=== PATIENT | female | born 1945 | race Two or more races ===

== ENCOUNTER 2021-10-12 22:06 | Inpatient (IN) | payer OTHER, MEDICAID ==
[~2021-10-12] VITALS: Ht 160 cm; Wt 47.2 kg
[2021-10-12 23:17] LABS: Basophils # (auto) 0.1 10 ^3/uL (0-0.2); Basophils % (auto) 0.6 % (0.0-2.0); Eosinophils # (auto) 0 10 ^3/uL (0-0.8); Eosinophils % (auto) 0.2 % (0.0-7.0); Hemoglobin 17.1 g/dL (12.2-16.2); Lymphocytes # (auto) 0.6 10 ^3/uL (0.4-5.4); Lymphocytes % (auto) 4.5 % (10.0-50.0); Mean Corpuscular Hgb Conc. 33.4 g/dL (32.0-36.0); Mean Corpuscular Volume 92.7 fL (80.0-100.0); Monocytes # (auto) 0.1 10 ^3/uL (0-1.3); Monocytes % (auto) 0.5 % (0.0-12.0); Neutrophils # (auto) 12.3 10 ^3/uL (1.6-8.6); Neutrophils % (auto) 94.2 % (37.0-80.0); Nucleated Red Blood Cells % 0.1 %; Red Cell Distribution Width 12.3 % (11.8-14.3); White Blood Cell 13.1 10^3/uL (4.4-10.8)
[2021-10-12 23:35] LABS: Chloride 96 mmol/L (98-107); INR 1.03 (0.9-1.15); Lactic Acid w/Reflex 3.9 mmol/L (0.4-2.0); Sodium 134 mmol/L (136-145)
[2021-10-12 23:57] LABS: Alanine Aminotransferase 29 U/L (13-56); Albumin 4.3 g/dL (3.4-5.0); Alkaline Phosphatase 103 U/L (45-117); Anion Gap 17 (5-15); Aspartate Aminotransferase 34 U/L (15-37); Bilirubin, Total 0.9 mg/dL (0.2-1.0); Blood Alcohol < 3.0 mg/dL (0-5); Blood Urea Nitrogen 21 mg/dL (7-18); Calcium 10.3 mg/dL (8.5-10.1); Carbon Dioxide 21 mmol/L (21-32); GFR African American 66 mL/min; GFR Non-African American 55 mL/min; Total Protein 8.6 g/dL (6.4-8.2)
[2021-10-13 00:09] LABS: Glucose 479 mg/dL (74-106)
[2021-10-13] MEDS ORDERED: LABETALOL HCL 5 MG/ML 4ML SYRINGE IV ONE (00:15)
[2021-10-13] MEDS ORDERED: InsuLIN R (HUMAN) 100 UNITS in SODIUM CHL 0.9% 99 ML IV SCH (01:15)
[2021-10-13] MEDS ORDERED: INSULIN LANTUS (GLARGINE) 1 /0.01ml (100units/ml) SC ONE ×2 (01:15→11:00)
[2021-10-13] MEDS ORDERED: DEXTROSE (50%) 50ML SYRG IV PRN ×2 (01:15→11:00)
[2021-10-13] MEDS ORDERED: ACETAMINOPHEN 650 MG RECT SUPP PR ONE (01:15)
[2021-10-13] MEDS: SODIUM CHLORIDE 0.9% 1,000 ML IV SCH ×2 (01:31→03:35)
[2021-10-13] MEDS ORDERED: InsuLIN REG 1unit/0.01ml Soln (100units/ml) ONE (01:35)
[2021-10-13] MEDS: ACCU-CHEK COMFORT CURVE STRIP VI SCH ×10 (01:49→23:15)
[2021-10-13] MEDS ORDERED: hydrALAZINE HCL 20 MG/ML VL ONE (02:30)
[2021-10-13] MEDS ORDERED: hydrALAZINE HCL 20 MG/ML VL IV ONE (02:30)
[2021-10-13 03:04] LABS: Basophils # (auto) 0.1 10 ^3/uL (0-0.2); Basophils % (auto) 0.8 % (0.0-2.0); Eosinophils # (auto) 0 10 ^3/uL (0-0.8); Eosinophils % (auto) 0.1 % (0.0-7.0); Hematocrit 49.7 % (36.0-46.0); Hemoglobin 16.7 g/dL (12.2-16.2); Lymphocytes # (auto) 0.5 10 ^3/uL (0.4-5.4); Lymphocytes % (auto) 3.5 % (10.0-50.0); Mean Corpuscular Hemoglobin 31.2 pg (28.0-32.0); Mean Corpuscular Hgb Conc. 33.6 g/dL (32.0-36.0); Monocytes # (auto) 0.3 10 ^3/uL (0-1.3); Monocytes % (auto) 1.9 % (0.0-12.0); Neutrophils # (auto) 13.6 10 ^3/uL (1.6-8.6); Neutrophils % (auto) 93.7 % (37.0-80.0); Nucleated Red Blood Cells % 0.2 %; Red Blood Cells 5.34 10^6/uL (4.0-5.20); Red Cell Distribution Width 12.6 % (11.8-14.3); White Blood Cell 14.5 10^3/uL (4.4-10.8)
[2021-10-13] MEDS: SOD CHL 0.9%/ KCL 20MEQ 1,000 ML IV SCH ×3 (03:32→10:42)
[2021-10-13 04:24] LABS: BUN/Creatinine Ratio 17.9; Calcium 9.3 mg/dL (8.5-10.1); Magnesium 2.4 mg/dL (1.6-2.6); Phosphorus 1.5 mg/dL (2.5-4.90); Potassium 4.1 mmol/L (3.5-5.1)
[2021-10-13] MEDS: POTASSIUM PHOSPHATE 22 MEQ in SODIUM CHL 0.9% 100 ML IV ONE ×2 (04:45→08:15)
[2021-10-13] MEDS ORDERED: MORPHINE SULFATE INJECTION 2 MG/ML SYRG IV PRN (04:45)
[2021-10-13] MEDS ORDERED: NITROGLYCERIN 0.4 MG SL TAB SL PRN (04:45)
[2021-10-13] MEDS ORDERED: ONDANSETRON HCL 4 MG/2 ML VIAL IV PRN (04:45)
[2021-10-13 07:23] LABS: Anion Gap 13 (5-15); BUN/Creatinine Ratio 19.2; Blood Urea Nitrogen 23 mg/dL (7-18); Calcium 9.1 mg/dL (8.5-10.1); Carbon Dioxide 24 mmol/L (21-32); Chloride 108 mmol/L (98-107); GFR African American 57 mL/min; GFR Non-African American 47 mL/min; Glucose 274 mg/dL (74-106); Potassium 3.2 mmol/L (3.5-5.1); Sodium 145 mmol/L (136-145)
[2021-10-13] MEDS ORDERED: cefTRIAXone 1GM/50ML D5W 50 ML IV SCH (09:00)
[2021-10-13] MEDS: PANTOPRAZOLE 40 MG/10 ML VIAL INJ IV SCH (10:21)
[2021-10-13] MEDS: SOD CHL 0.45% WITH 20MEQ KCL 1,000 ML IV SCH (12:17)
[2021-10-13] MEDS: InsuLIN REG 1unit/0.01ml Soln (100units/ml) SC SCH ×3 (12:26→23:18)
[2021-10-13 13:41] LABS: Calcium 9.4 mg/dL (8.5-10.1); Potassium 3.8 mmol/L (3.5-5.1)
[2021-10-13 13:46] LABS: BUN/Creatinine Ratio 26.4
[2021-10-13] MEDS ORDERED: ENOXAPARIN SOD 60 MG/0.6 ML SYRINGE SC ONE (14:30)
[2021-10-13 15:00] VITALS: BP 150/82
[2021-10-13 17:00] VITALS: BP 170/84
[2021-10-13 20:31] VITALS: BP 116/69
[2021-10-13 22:00] VITALS: BP 104/86
[2021-10-13] MEDS: ATORVASTATIN 20 MG TAB PO SCH (23:14)
[2021-10-13] MEDS: ENOXAPARIN SOD 60 MG/0.6 ML SYRINGE SC SCH (23:15)
[2021-10-14 05:30] VITALS: BP 160/92
[2021-10-14] MEDS: SOD CHL 0.45% WITH 20MEQ KCL 1,000 ML IV SCH ×2 (05:53→23:00)
[2021-10-14] MEDS: InsuLIN REG 1unit/0.01ml Soln (100units/ml) SC SCH ×3 (05:53→18:01)
[2021-10-14] MEDS: ACCU-CHEK COMFORT CURVE STRIP VI SCH ×3 (05:53→17:26)
[2021-10-14 06:29] LABS: Basophils # (auto) 0.1 10 ^3/uL (0-0.2); Basophils % (auto) 1.1 % (0.0-2.0); Eosinophils # (auto) 0 10 ^3/uL (0-0.8); Eosinophils % (auto) 0.3 % (0.0-7.0); Hematocrit 43.1 % (36.0-46.0); Hemoglobin 14.6 g/dL (12.2-16.2); Lymphocytes # (auto) 1.5 10 ^3/uL (0.4-5.4); Lymphocytes % (auto) 11.9 % (10.0-50.0); Mean Corpuscular Hemoglobin 31.4 pg (28.0-32.0); Mean Corpuscular Hgb Conc. 33.9 g/dL (32.0-36.0); Mean Corpuscular Volume 92.6 fL (80.0-100.0); Monocytes # (auto) 0.6 10 ^3/uL (0-1.3); Monocytes % (auto) 4.7 % (0.0-12.0); Neutrophils # (auto) 10.2 10 ^3/uL (1.6-8.6); Nucleated Red Blood Cells % 0.1 %; Red Blood Cells 4.65 10^6/uL (4.0-5.20); Red Cell Distribution Width 12.9 % (11.8-14.3); White Blood Cell 12.4 10^3/uL (4.4-10.8)
[2021-10-14 06:47] LABS: Potassium 4.2 mmol/L (3.5-5.1)
[2021-10-14 06:55] LABS: Albumin 3.2 g/dL (3.4-5.0); BUN/Creatinine Ratio 37.4; Bilirubin, Total 0.7 mg/dL (0.2-1.0); Calcium 9.2 mg/dL (8.5-10.1); Total Protein 6.4 g/dL (6.4-8.2)
[2021-10-14 09:00] VITALS: BP 181/90
[2021-10-14] MEDS: PANTOPRAZOLE 40 MG/10 ML VIAL INJ IV SCH (10:46)
[2021-10-14] MEDS: ASPirin 81 mg TAB PO SCH (10:47)
[2021-10-14] MEDS: ENOXAPARIN SOD 60 MG/0.6 ML SYRINGE SC SCH (10:48)
[2021-10-14] MEDS ORDERED: INSULIN LANTUS (GLARGINE) 1 /0.01ml (100units/ml) SC ONE (11:15)
[2021-10-14 11:36] LABS: Urine Bacteria NONE SEEN /hpf (None Seen); Urine Blood 3+ /uL (Negative); Urine Budding Yeast LOADED /hpf (None Seen); Urine Mucus FEW (None Seen); Urine Specific Gravity 1.024 (1.001-1.035); Urine WBC 158 /hpf (0 - 5)
[2021-10-14 12:00] VITALS: BP 136/91
[2021-10-14 13:00] VITALS: BP 138/91
[2021-10-14 14:20] LABS: Amphetamine Screen, Urine NEGATIVE (NEGATIVE); Barbiturate Scree,Urine NEGATIVE (NEGATIVE); Benzodiazephine Screen, Urine NEGATIVE (NEGATIVE); Cannabinoid Screen, Urine NEGATIVE (NEGATIVE); Cocaine Screen, Urine NEGATIVE (NEGATIVE); Opiate Scree,Urine NEGATIVE (NEGATIVE); Phencyclidine Screen, Urine NEGATIVE (NEGATIVE)
[2021-10-14 17:00] VITALS: BP 169/76
[2021-10-14] MEDS: hydrALAZINE HCL 20 MG/ML VL IV PRN (17:59)
[2021-10-14 22:00] VITALS: BP 119/61
[2021-10-15] MEDS: SOD CHL 0.45% WITH 20MEQ KCL 1,000 ML IV SCH (00:03)
[2021-10-15] MEDS: ATORVASTATIN 20 MG TAB PO SCH (00:03)
[2021-10-15] MEDS: METOPROLOL TARTRATE 25 MG TAB PO SCH ×2 (00:05→10:36)
[2021-10-15] MEDS: ACCU-CHEK COMFORT CURVE STRIP VI SCH ×4 (00:06→19:02)
[2021-10-15] MEDS: ENOXAPARIN SOD 60 MG/0.6 ML SYRINGE SC SCH ×2 (00:06→10:34)
[2021-10-15] MEDS: InsuLIN REG 1unit/0.01ml Soln (100units/ml) SC SCH ×4 (00:07→17:08)
[2021-10-15 05:00] VITALS: BP 162/68
[2021-10-15] MEDS: INSULIN LANTUS (GLARGINE) 1 /0.01ml (100units/ml) SC SCH (06:36)
[2021-10-15 09:00] VITALS: BP 157/70
[2021-10-15] MEDS: PANTOPRAZOLE 40 MG/10 ML VIAL INJ IV SCH (10:34)
[2021-10-15] MEDS: ASPirin 81 mg TAB PO SCH (10:35)
[2021-10-15] MEDS: LISINOPRIL 10 MG TAB PO SCH (10:35)
[2021-10-15] MEDS: cefTRIAXone 1GM/50ML D5W 50 ML IV SCH (10:37)
[2021-10-15 13:00] VITALS: BP 132/64
[2021-10-15 17:00] VITALS: BP 155/79
[2021-10-15 22:00] VITALS: BP 101/77
[2021-10-16 05:00] VITALS: BP 156/84
[2021-10-16] MEDS: ACCU-CHEK COMFORT CURVE STRIP VI SCH ×2 (06:07)
[2021-10-16] MEDS: InsuLIN REG 1unit/0.01ml Soln (100units/ml) SC SCH ×4 (06:17→18:00)
[2021-10-16] MEDS: INSULIN LANTUS (GLARGINE) 1 /0.01ml (100units/ml) SC SCH (06:17)
[2021-10-16] MEDS: cefTRIAXone 1GM/50ML D5W 50 ML IV SCH (08:56)
[2021-10-16] MEDS: ASPirin 81 mg TAB PO SCH (08:57)
[2021-10-16] MEDS: METOPROLOL TARTRATE 25 MG TAB PO SCH ×4 (08:58→23:04)
[2021-10-16] MEDS: LISINOPRIL 10 MG TAB PO SCH (08:59)
[2021-10-16] MEDS: ENOXAPARIN SOD 40 MG/0.4 ML SYRINGE SC SCH (08:59)
[2021-10-16 09:00] VITALS: BP 144/69
[2021-10-16] MEDS ORDERED: INSULIN LANTUS (GLARGINE) 1 /0.01ml (100units/ml) SC ONE (12:45)
[2021-10-16 20:00] VITALS: BP 132/70
[2021-10-16] MEDS: ATORVASTATIN 20 MG TAB PO SCH ×2 (23:05)
[2021-10-17] MEDS ORDERED: INSULIN LANTUS (GLARGINE) 1 /0.01ml (100units/ml) SC SCH (07:00)
[2021-10-17 08:00] VITALS: BP 132/70
[2021-10-17] MEDS: cefTRIAXone 1GM/50ML D5W 50 ML IV SCH (09:00)
[2021-10-17] MEDS: METOPROLOL TARTRATE 25 MG TAB PO SCH (09:00)
[2021-10-17] MEDS: LISINOPRIL 10 MG TAB PO SCH (10:00)
[2021-10-17] MEDS: ASPirin 81 mg TAB PO SCH (10:00)
[2021-10-17] MEDS: ENOXAPARIN SOD 40 MG/0.4 ML SYRINGE SC SCH (10:00)
[2021-10-17] MEDS: InsuLIN REG 1unit/0.01ml Soln (100units/ml) SC SCH ×3 (12:00→18:00)
[2021-10-17] MEDS ORDERED: glipiZIDE 5 MG TAB PO SCH (18:00)
[2021-10-17 22:00] VITALS: BP 156/89
[2021-10-17] MEDS: ATORVASTATIN 20 MG TAB PO SCH (22:22)
[2021-10-17] MEDS: hydrALAZINE HCL 20 MG/ML VL IV PRN (22:23)
[2021-10-18] MEDS: InsuLIN REG 1unit/0.01ml Soln (100units/ml) SC SCH ×4 (00:13→17:48)
[2021-10-18] MEDS: ACCU-CHEK COMFORT CURVE STRIP VI SCH ×4 (01:10→17:48)
[2021-10-18 05:00] VITALS: BP 130/79
[2021-10-18 06:09] LABS: Cholesterol 147 mg/dL (< 200); Folate (Folic Acid) 14.1 ng/mL (5.38-24); HDL Cholesterol 54 mg/dL (40-59); LDL Cholesterol 76 mg/dL (< 100); Triglycerides 84 mg/dL (< 150)
[2021-10-18] MEDS: INSULIN LANTUS (GLARGINE) 1 /0.01ml (100units/ml) SC SCH (06:20)
[2021-10-18 09:13] VITALS: BP 134/80
[2021-10-18] MEDS: cefTRIAXone 1GM/50ML D5W 50 ML IV SCH (09:40)
[2021-10-18] MEDS: ASPirin 81 mg TAB PO SCH (09:40)
[2021-10-18] MEDS: LISINOPRIL 10 MG TAB PO SCH (09:41)
[2021-10-18] MEDS: METOPROLOL TARTRATE 25 MG TAB PO SCH ×2 (09:41→21:30)
[2021-10-18] MEDS: ENOXAPARIN SOD 40 MG/0.4 ML SYRINGE SC SCH (09:42)
[2021-10-18 12:22] VITALS: BP 164/49
[2021-10-18] MEDS: hydrALAZINE HCL 20 MG/ML VL IV PRN (12:23)
[2021-10-18] MEDS ORDERED: OXYB5TAB61 PO (15:21)
[2021-10-18] MEDS ORDERED: ATOR40TA52 PO (15:21)
[2021-10-18] MEDS ORDERED: [UNRECOGNIZED DRUG - CODE] (15:21)
[2021-10-18] MEDS ORDERED: LISI40TA11 PO (15:21)
[2021-10-18] MEDS ORDERED: METF-916 PO (15:21)
[2021-10-18] MEDS ORDERED: ALCOPAD62 TOP (15:21)
[2021-10-18] MEDS ORDERED: INSUINJ37 SC (15:21)
[2021-10-18] MEDS ORDERED: GABA-339 PO (15:21)
[2021-10-18] MEDS ORDERED: GLUC-244 XX (15:21)
[2021-10-18] MEDS ORDERED: MET25T PO (15:21)
[2021-10-18 17:02] VITALS: BP 93/51
[2021-10-18] MEDS: ATORVASTATIN 20 MG TAB PO SCH (21:29)
[2021-10-18 22:00] VITALS: BP 158/65
[2021-10-18] MEDS ORDERED: HYDROcodone-ACET 5/325MG TAB PO PRN (22:30)
[2021-10-19] MEDS: InsuLIN REG 1unit/0.01ml Soln (100units/ml) SC SCH ×4 (00:36→17:32)
[2021-10-19] MEDS: ACCU-CHEK COMFORT CURVE STRIP VI SCH ×4 (00:38→17:35)
[2021-10-19 05:00] VITALS: BP 165/96
[2021-10-19] MEDS: INSULIN LANTUS (GLARGINE) 1 /0.01ml (100units/ml) SC SCH (06:20)
[2021-10-19] MEDS: hydrALAZINE HCL 20 MG/ML VL IV PRN (06:29)
[2021-10-19 06:38] VITALS: BP 136/66
[2021-10-19 07:23] LABS: Basophils # (auto) 0 10 ^3/uL (0-0.2); Basophils % (auto) 0.7 % (0.0-2.0); Eosinophils # (auto) 0.2 10 ^3/uL (0-0.8); Eosinophils % (auto) 2.7 % (0.0-7.0); Hematocrit 37.4 % (36.0-46.0); Hemoglobin 12.7 g/dL (12.2-16.2); Lymphocytes # (auto) 1.8 10 ^3/uL (0.4-5.4); Lymphocytes % (auto) 31.2 % (10.0-50.0); Mean Corpuscular Hemoglobin 30.6 pg (28.0-32.0); Mean Corpuscular Volume 90.1 fL (80.0-100.0); Monocytes # (auto) 0.4 10 ^3/uL (0-1.3); Monocytes % (auto) 6.8 % (0.0-12.0); Neutrophils # (auto) 3.3 10 ^3/uL (1.6-8.6); Neutrophils % (auto) 58.6 % (37.0-80.0); Nucleated Red Blood Cells % 0.1 %; Red Blood Cells 4.16 10^6/uL (4.0-5.20); White Blood Cell 5.6 10^3/uL (4.4-10.8)
[2021-10-19 07:44] LABS: BUN/Creatinine Ratio 45.9; Calcium 8.8 mg/dL (8.5-10.1); Potassium 3.7 mmol/L (3.5-5.1)
[2021-10-19 09:00] VITALS: BP_SYST 107; BP_SYST 121; BP_DIAS 69
[2021-10-19] MEDS ORDERED: diphenhdrAMINE HCL 50 MG/1 ML VL IV ONE (10:15)
[2021-10-19] MEDS ORDERED: fentaNYL CITRATE 100 MCG/2 ML VL IV ONE (10:15)
[2021-10-19] MEDS ORDERED: MIDAZOLAM HCL 5 MG/ML-1ML VIAL IM ONE (10:15)
[2021-10-19] MEDS ORDERED: LIDOCAINE VISCOUS 2% 15ML UD MT ONE (10:15)
[2021-10-19] MEDS ORDERED: MIDAZOLAM HCL 2MG/2ML 2ml VIAL (1mg/ml) ONE (11:11)
[2021-10-19 13:00] VITALS: BP 116/65
[2021-10-19] MEDS: ASPirin 81 mg TAB PO SCH (14:28)
[2021-10-19] MEDS: cefTRIAXone 1GM/50ML D5W 50 ML IV SCH (14:28)
[2021-10-19] MEDS: ENOXAPARIN SOD 40 MG/0.4 ML SYRINGE SC SCH (14:29)
[2021-10-19] MEDS: METOPROLOL TARTRATE 25 MG TAB PO SCH ×2 (14:29→21:40)
[2021-10-19] MEDS: LISINOPRIL 10 MG TAB PO SCH (14:29)
[2021-10-19] MEDS ORDERED: INSUINJ37 SC ×2 (16:51→16:53)
[2021-10-19 17:00] VITALS: BP 138/69
[2021-10-19] MEDS: ATORVASTATIN 20 MG TAB PO SCH (21:39)
[2021-10-19 22:00] VITALS: BP 126/62
[2021-10-20] MEDS: ACCU-CHEK COMFORT CURVE STRIP VI SCH ×4 (00:23→18:20)
[2021-10-20] MEDS: InsuLIN REG 1unit/0.01ml Soln (100units/ml) SC SCH ×4 (00:25→18:20)
[2021-10-20 05:11] VITALS: BP 149/67
[2021-10-20] MEDS: INSULIN LANTUS (GLARGINE) 1 /0.01ml (100units/ml) SC SCH (05:50)
[2021-10-20 09:00] VITALS: BP 137/77
[2021-10-20] MEDS: ASPirin 81 mg TAB PO SCH (09:59)
[2021-10-20] MEDS: cefTRIAXone 1GM/50ML D5W 50 ML IV SCH (09:59)
[2021-10-20] MEDS: METOPROLOL TARTRATE 25 MG TAB PO SCH ×2 (10:00→22:18)
[2021-10-20] MEDS: LISINOPRIL 10 MG TAB PO SCH (10:00)
[2021-10-20] MEDS: ENOXAPARIN SOD 40 MG/0.4 ML SYRINGE SC SCH (10:01)
[2021-10-20 17:10] VITALS: BP 147/76
[2021-10-20 20:00] VITALS: BP 150/70
[2021-10-20] MEDS: ATORVASTATIN 20 MG TAB PO SCH (22:12)
[2021-10-21] MEDS: ACCU-CHEK COMFORT CURVE STRIP VI SCH ×4 (03:02→17:08)
[2021-10-21 05:00] VITALS: BP 150/70
[2021-10-21] MEDS: InsuLIN REG 1unit/0.01ml Soln (100units/ml) SC SCH ×4 (06:00→17:08)
[2021-10-21 09:00] VITALS: BP 163/74
[2021-10-21] MEDS ORDERED: LISINOPRIL 10 MG TAB PO SCH (10:00)
[2021-10-21] MEDS: ENOXAPARIN SOD 40 MG/0.4 ML SYRINGE SC SCH (10:35)
[2021-10-21] MEDS: ASPirin 81 mg TAB PO SCH (10:35)
[2021-10-21] MEDS: METOPROLOL TARTRATE 25 MG TAB PO SCH (10:40)
[2021-10-21] MEDS: INSULIN LANTUS (GLARGINE) 1 /0.01ml (100units/ml) SC SCH (10:45)
[2021-10-21 13:00] VITALS: BP 167/77
[2021-10-21 17:00] VITALS: BP 137/82
== END 2021-10-21 17:20 | DRG 637 ==
LOC: ER 22:14 → TELE 10-13 04:42 → TELE-CENTR 10-13 13:08 → CENTRAL 10-16 09:48
PROVIDERS: ADMIT Nurse Practitioner; ATTEND Internal Medicine
PROC: B24BZZ4 Ultrasonography of Heart with Aorta, Transesophageal (ICD-10-PCS; 2021-10-19)
PROC: 0GBH3ZX Excision of Right Thyroid Gland Lobe, Percutaneous Approach, Diagnostic (ICD-10-PCS; principal; 2021-10-20)
DX: E11.10 Type 2 diabetes mellitus with ketoacidosis without coma (principal); G93.41 Metabolic encephalopathy; N17.0 Acute kidney failure with tubular necrosis; I21.4 Non-ST elevation (NSTEMI) myocardial infarction; G93.1 Anoxic brain damage, not elsewhere classified; G91.2 (Idiopathic) normal pressure hydrocephalus; E03.9 Hypothyroidism, unspecified; E86.0 Dehydration; E87.6 Hypokalemia; H57.02 Anisocoria; I10 Essential (primary) hypertension; E04.2 Nontoxic multinodular goiter; E78.5 Hyperlipidemia, unspecified; Z20.822 Contact with and (suspected) exposure to COVID-19; M19.90 Unspecified osteoarthritis, unspecified site; I65.22 Occlusion and stenosis of left carotid artery; J45.909 Unspecified asthma, uncomplicated; Z72.0 Tobacco use; Z79.4 Long term (current) use of insulin; Z79.899 Other long term (current) drug therapy; Z86.73 Personal history of transient ischemic attack (TIA), and cerebral infarction without residual deficits
CPT/HCPCS: 36415; 36600; 70450; 70551; 71045; 71250; 72125; 73502; 74176; 76536; 76856; 76942; 80048; 80053; 80061; 80307; 80320; 81001; 82010; 82607; 82746; 82805; 82962; 83036; 83605; 83735; 83880; 83930; 84100; 84443; 84484; 85025; 85379; 85610; 85730; 87040; 87086; 87088; 87426; 88172; 93005; 93306; 93312; 93886; 95819; 96365; 96366; 96368; 96372; 96375; 97110; 97116; 97163; 97530; 99152; C9113; G0378; J0696; J1815; J2250; J2405

== ENCOUNTER 2021-12-17 18:41 | Inpatient (IN) | payer OTHER, MEDICAID ==
[~2021-12-17] VITALS: Ht 154.9 cm; Wt 45.7 kg
[~2021-12-17 18:41] MED LIST: ALCOPAD62 TOP; ATOR40TA52 PO; GABA-339 PO; GLUC-244 XX; INSUINJ37 SC; MET25T PO; METF-916 PO; OXYB5TAB61 PO; [UNRECOGNIZED DRUG - CODE]
[2021-12-17 19:49] LABS: Basophils # (auto) 0.1 10 ^3/uL (0-0.2); Basophils % (auto) 0.8 % (0.0-2.0); Eosinophils # (auto) 0 10 ^3/uL (0-0.8); Eosinophils % (auto) 0.6 % (0.0-7.0); Hematocrit 39.5 % (36.0-46.0); Hemoglobin 13.8 g/dL (12.2-16.2); Lymphocytes # (auto) 1.5 10 ^3/uL (0.4-5.4); Lymphocytes % (auto) 18.8 % (10.0-50.0); Mean Corpuscular Hemoglobin 31.3 pg (28.0-32.0); Mean Corpuscular Hgb Conc. 34.8 g/dL (32.0-36.0); Monocytes # (auto) 0.4 10 ^3/uL (0-1.3); Monocytes % (auto) 4.9 % (0.0-12.0); Neutrophils # (auto) 5.9 10 ^3/uL (1.6-8.6); Neutrophils % (auto) 74.9 % (37.0-80.0); Red Blood Cells 4.39 10^6/uL (4.0-5.20); Red Cell Distribution Width 12.7 % (11.8-14.3); White Blood Cell 7.8 10^3/uL (4.4-10.8)
[2021-12-17 19:58] LABS: Urine Bacteria FEW /hpf (None Seen); Urine Blood Negative /uL (Negative); Urine Specific Gravity 1.037 (1.001-1.035); Urine WBC 1 /hpf (0 - 5)
[2021-12-17 20:07] LABS: Albumin 3.5 g/dL (3.4-5.0); Calcium 9.1 mg/dL (8.5-10.1); Potassium 3.5 mmol/L (3.5-5.1)
[2021-12-17 20:10] LABS: Bilirubin, Total 0.6 mg/dL (0.2-1.0); Total Protein 6.6 g/dL (6.4-8.2)
[2021-12-17] MEDS ORDERED: LACTATED RINGER'S 2,000 ML IV ONE (20:30)
[2021-12-17] MEDS ORDERED: ACETAMINOPHEN 500 MG TAB PO PRN (23:45)
[2021-12-17] MEDS ORDERED: DEXTROSE (50%) 50ML SYRG IV PRN (23:45)
[2021-12-17] MEDS ORDERED: MORPHINE SULFATE INJECTION 2 MG/ML SYRG IV PRN ×2 (23:45)
[2021-12-17] MEDS ORDERED: NITROGLYCERIN 0.4 MG SL TAB SL PRN (23:45)
[2021-12-17] MEDS ORDERED: ALBUTEROL SULF 2.5 MG/0.5ML(0.5%) NEB SOLN NEB PRN (23:45)
[2021-12-17] MEDS ORDERED: IPRATROPIUM BROM 0.5 MG/2.5ML INH SOL NEB PRN (23:45)
[2021-12-17] MEDS ORDERED: ONDANSETRON HCL 4 MG/2 ML VIAL IV PRN (23:45)
[2021-12-18] VITALS (8 sets, daily range): BP systolic 131–159; BP diastolic 67–110
[2021-12-18] MEDS: ACCU-CHEK COMFORT CURVE STRIP VI SCH ×6 (00:18→20:00)
[2021-12-18] MEDS: SOD CHL 0.45% 1,000 ML IV SCH ×3 (00:23→13:30)
[2021-12-18] MEDS: InsuLIN REG 1unit/0.01ml Soln (100units/ml) SC SCH ×6 (00:24→20:42)
[2021-12-18] MEDS: HYDROcodone-ACET 5/325MG TAB PO PRN ×2 (05:18→12:20)
[2021-12-18 06:13] LABS: Basophils # (auto) 0.1 10 ^3/uL (0-0.2); Basophils % (auto) 1.1 % (0.0-2.0); Eosinophils # (auto) 0.1 10 ^3/uL (0-0.8); Eosinophils % (auto) 0.9 % (0.0-7.0); Hematocrit 37.3 % (36.0-46.0); Hemoglobin 13.5 g/dL (12.2-16.2); Lymphocytes % (auto) 24.1 % (10.0-50.0); Mean Corpuscular Hemoglobin 31.6 pg (28.0-32.0); Mean Corpuscular Hgb Conc. 36.1 g/dL (32.0-36.0); Mean Corpuscular Volume 87.5 fL (80.0-100.0); Monocytes # (auto) 0.3 10 ^3/uL (0-1.3); Monocytes % (auto) 3.9 % (0.0-12.0); Neutrophils # (auto) 5.8 10 ^3/uL (1.6-8.6); Nucleated Red Blood Cells % 0.1 %; Red Blood Cells 4.26 10^6/uL (4.0-5.20); Red Cell Distribution Width 12.8 % (11.8-14.3); White Blood Cell 8.4 10^3/uL (4.4-10.8)
[2021-12-18] MEDS: PANTOPRAZOLE 40 MG TAB PO SCH (10:53)
[2021-12-18 14:10] LABS: Amylase 36 U/L (25-115); Lipase 131 U/L (73-393)
[2021-12-18] MEDS: METOPROLOL TARTRATE 25 MG TAB PO SCH (18:23)
[2021-12-18] MEDS: GABAPENTIN 300 MG CAP PO SCH (21:39)
[2021-12-18] MEDS: ATORVASTATIN 20 MG TAB PO SCH (21:39)
[2021-12-18] MEDS: INSULIN LANTUS (GLARGINE) 1 /0.01ml (100units/ml) SC SCH (21:42)
[2021-12-19] MEDS: ACCU-CHEK COMFORT CURVE STRIP VI SCH ×5 (00:27→18:19)
[2021-12-19] MEDS: InsuLIN REG 1unit/0.01ml Soln (100units/ml) SC SCH ×5 (00:35→18:21)
[2021-12-19] MEDS: SOD CHL 0.45% 1,000 ML IV SCH ×4 (00:51→23:50)
[2021-12-19 05:00] VITALS: BP 142/86
[2021-12-19] MEDS: GABAPENTIN 300 MG CAP PO SCH ×2 (08:52→22:10)
[2021-12-19] MEDS: OXYBUTYNIN CHL 5 MG TAB PO SCH (08:52)
[2021-12-19] MEDS: METOPROLOL TARTRATE 25 MG TAB PO SCH ×2 (08:52→17:44)
[2021-12-19] MEDS: PANTOPRAZOLE 40 MG TAB PO SCH (08:52)
[2021-12-19 09:00] VITALS: BP 141/72
[2021-12-19] MEDS ORDERED: DEXTROSE (50%) 50ML SYRG IV PRN (12:00)
[2021-12-19 13:00] VITALS: BP 128/68
[2021-12-19 17:00] VITALS: BP 151/84
[2021-12-19 18:01] LABS: INR 1.04 (0.9-1.15)
[2021-12-19 22:00] VITALS: BP 157/86
[2021-12-19] MEDS: ATORVASTATIN 20 MG TAB PO SCH (22:10)
[2021-12-19] MEDS: DOCUSATE SOD 100 MG CAP PO SCH (22:10)
[2021-12-19] MEDS: INSULIN LANTUS (GLARGINE) 1 /0.01ml (100units/ml) SC SCH (22:11)
[2021-12-20] MEDS: ACCU-CHEK COMFORT CURVE STRIP VI SCH ×5 (00:53→23:29)
[2021-12-20] MEDS: InsuLIN REG 1unit/0.01ml Soln (100units/ml) SC SCH ×5 (00:58→23:29)
[2021-12-20 05:00] VITALS: BP 135/75
[2021-12-20 06:28] LABS: Basophils # (auto) 0 10 ^3/uL (0-0.2); Eosinophils # (auto) 0.1 10 ^3/uL (0-0.8); Monocytes # (auto) 0.2 10 ^3/uL (0-1.3); Monocytes % (auto) 4.3 % (0.0-12.0)
[2021-12-20 06:30] LABS: Basophils % (auto) 0.8 % (0.0-2.0); Eosinophils % (auto) 1.4 % (0.0-7.0); Hemoglobin 13.8 g/dL (12.2-16.2); Lymphocytes # (auto) 2.1 10 ^3/uL (0.4-5.4); Lymphocytes % (auto) 36.3 % (10.0-50.0); Mean Corpuscular Hemoglobin 31.7 pg (28.0-32.0); Mean Corpuscular Hgb Conc. 36.2 g/dL (32.0-36.0); Mean Corpuscular Volume 87.5 fL (80.0-100.0); Neutrophils # (auto) 3.3 10 ^3/uL (1.6-8.6); Neutrophils % (auto) 57.2 % (37.0-80.0); Red Blood Cells 4.34 10^6/uL (4.0-5.20); Red Cell Distribution Width 12.9 % (11.8-14.3); White Blood Cell 5.8 10^3/uL (4.4-10.8)
[2021-12-20 07:08] LABS: BUN/Creatinine Ratio 18.3; Calcium 8.7 mg/dL (8.5-10.1)
[2021-12-20 07:11] LABS: Potassium 2.6 mmol/L (3.5-5.1)
[2021-12-20] MEDS: METOPROLOL TARTRATE 25 MG TAB PO SCH ×2 (08:00→18:16)
[2021-12-20] MEDS ORDERED: LIDOCAINE VISCOUS 2% 15ML UD ONE (08:41)
[2021-12-20] MEDS ORDERED: MIDAZOLAM HCL 5 MG/ML-1ML VIAL ONE (08:41)
[2021-12-20] MEDS ORDERED: diphenhdrAMINE HCL 50 MG/1 ML VL ONE (08:42)
[2021-12-20] MEDS ORDERED: fentaNYL CITRATE 100 MCG/2 ML VL ONE (08:42)
[2021-12-20 09:00] VITALS: BP 157/81
[2021-12-20] MEDS: OXYBUTYNIN CHL 5 MG TAB PO SCH (09:32)
[2021-12-20] MEDS: GABAPENTIN 300 MG CAP PO SCH ×2 (09:32→21:21)
[2021-12-20] MEDS: PANTOPRAZOLE 40 MG TAB PO SCH (09:32)
[2021-12-20] MEDS: DOCUSATE SOD 100 MG CAP PO SCH ×2 (09:32→21:21)
[2021-12-20] MEDS: POTASSIUM CHL 20MEQ/100ML 100 ML IV SCH ×2 (10:11→12:02)
[2021-12-20] MEDS ORDERED: hydrALAZINE HCL 20 MG/ML VL IV PRN (11:45)
[2021-12-20 13:00] VITALS: BP 147/91
[2021-12-20] MEDS: SOD CHL 0.45% 1,000 ML IV SCH ×2 (13:10→16:12)
[2021-12-20] MEDS ORDERED: POTASSIUM CHL 20MEQ/100ML 100 ML IV ONE (14:15)
[2021-12-20 15:45] LABS: Urine Bacteria FEW /hpf (None Seen); Urine Blood Negative /uL (Negative); Urine Specific Gravity 1.008 (1.001-1.035); Urine WBC 153 /hpf (0 - 5)
[2021-12-20 16:48] VITALS: BP 146/84
[2021-12-20] MEDS: ATORVASTATIN 20 MG TAB PO SCH (21:21)
[2021-12-20] MEDS: INSULIN LANTUS (GLARGINE) 1 /0.01ml (100units/ml) SC SCH (21:29)
[2021-12-20 22:00] VITALS: BP 156/70
[2021-12-21] MEDS ORDERED: diphenhdrAMINE HCL 25 MG CAP PO ONE (01:00)
[2021-12-21 04:57] VITALS: BP 117/65
[2021-12-21] MEDS: ACCU-CHEK COMFORT CURVE STRIP VI SCH ×3 (05:33→18:02)
[2021-12-21] MEDS: InsuLIN REG 1unit/0.01ml Soln (100units/ml) SC SCH ×3 (05:33→18:00)
[2021-12-21 07:16] LABS: Potassium 3.3 mmol/L (3.5-5.1)
[2021-12-21 07:22] LABS: BUN/Creatinine Ratio 22.4; Calcium 8.5 mg/dL (8.5-10.1); Magnesium 1.6 mg/dL (1.6-2.6)
[2021-12-21] MEDS: METOPROLOL TARTRATE 25 MG TAB PO SCH ×2 (08:00→18:01)
[2021-12-21] MEDS: PANTOPRAZOLE 40 MG TAB PO SCH (08:06)
[2021-12-21] MEDS: OXYBUTYNIN CHL 5 MG TAB PO SCH (08:06)
[2021-12-21] MEDS: GABAPENTIN 300 MG CAP PO SCH (08:06)
[2021-12-21] MEDS: DOCUSATE SOD 100 MG CAP PO SCH (08:06)
[2021-12-21 08:59] VITALS: BP 147/77
[2021-12-21] MEDS ORDERED: SODIUM CHLORIDE LOCK 10 ML ONE (09:14)
[2021-12-21] MEDS ORDERED: LIDOCAINE VISCOUS 2% 15ML UD ONE (09:14)
[2021-12-21] MEDS ORDERED: MIDAZOLAM HCL 5 MG/ML-1ML VIAL ONE (09:15)
[2021-12-21] MEDS ORDERED: diphenhdrAMINE HCL 50 MG/1 ML VL ONE (09:16)
[2021-12-21] MEDS ORDERED: fentaNYL CITRATE 100 MCG/2 ML VL ONE (09:16)
[2021-12-21] MEDS ORDERED: CEFU500T43 PO (10:10)
[2021-12-21] MEDS ORDERED: PANT40T PO (10:10)
[2021-12-21] MEDS ORDERED: POTASSIUM CHL 20 Meq TABLET PO ONE (10:15)
[2021-12-21] MEDS ORDERED: CEFUROXIME 250 MG TAB PO ONE (10:15)
[2021-12-21 13:24] VITALS: BP 158/77
[2021-12-21 13:41] VITALS: BP 129/78
[2021-12-21] MEDS: SOD CHL 0.45% 1,000 ML IV SCH (16:08)
[2021-12-21 16:47] VITALS: BP 134/73
[2021-12-21] MEDS ORDERED: CEFUROXIME 250 MG TAB PO SCH (22:00)
== END 2021-12-21 18:11 | DRG 637 ==
LOC: ER 18:43 → TELE-CENTR 23:31
PROVIDERS: ADMIT Nurse Practitioner Acute Care; ATTEND Internal Medicine
PROC: 0DJ08ZZ Inspection of Upper Intestinal Tract, Via Natural or Artificial Opening Endoscopic (ICD-10-PCS; principal; 2021-12-21 09:25)
DX: E11.65 Type 2 diabetes mellitus with hyperglycemia (principal); I21.A1 Myocardial infarction type 2; J98.11 Atelectasis; R64 Cachexia; N39.0 Urinary tract infection, site not specified; Z68.1 Body mass index [BMI] 19.9 or less, adult; E86.0 Dehydration; E78.00 Pure hypercholesterolemia, unspecified; I10 Essential (primary) hypertension; E78.5 Hyperlipidemia, unspecified; Z20.822 Contact with and (suspected) exposure to COVID-19; K56.41 Fecal impaction; E87.6 Hypokalemia; K29.70 Gastritis, unspecified, without bleeding; Z79.899 Other long term (current) drug therapy; Z82.49 Family history of ischemic heart disease and other diseases of the circulatory system; Z88.8 Allergy status to other drugs, medicaments and biological substances; Z79.4 Long term (current) use of insulin; Z79.84 Long term (current) use of oral hypoglycemic drugs; Z83.3 Family history of diabetes mellitus; Z86.73 Personal history of transient ischemic attack (TIA), and cerebral infarction without residual deficits; Z87.440 Personal history of urinary (tract) infections; Z91.14 Patient's other noncompliance with medication regimen
CPT/HCPCS: 36415; 36600; 43235; 71045; 74176; 80048; 80053; 81001; 82010; 82150; 82805; 82962; 83036; 83690; 83735; 84484; 85025; 85610; 86850; 86900; 86901; 93005; 96360; 97110; 97116; 97163; 97530; G0378; J1815; J2250; J3480